=== PATIENT | male | born 1950 | race Caucasian/White ===

== ENCOUNTER 2024-12-22 14:10 | Outpatient (CLI) | payer MEDICARE | END 2024-12-22 14:11 | disposition home or self-care (01) | LOC: LABBT 14:10 | PROVIDERS: ATTEND Thoracic Surgery (Cardiothoracic Vascular Surgery) | DX: Z01.818 Encounter for other preprocedural examination (principal); I25.10 Atherosclerotic heart disease of native coronary artery without angina pectoris; I51.7 Cardiomegaly | CPT/HCPCS: 71046 ==

== ENCOUNTER 2024-12-22 14:30 | Inpatient (IN) | payer MEDICARE ==
[2024-12-22 15:06] LABS: #Basophils 0.04 10x3/uL (0.0-0.2); #Eosinophils 0.12 10x3/uL (0.0-0.7); #Monocytes 0.54 10x3/uL (0.11-0.59); #Neutrophils 4.33 10x3/uL (1.40-6.50); %Basophils 0.6 % (0.0-1.0); %Eosinophils 1.9 % (0.0-10.0); %Lymphocytes 22.1 % (21.0-51.0); %Monocytes 8.3 % (0.0-10.0); %Neutrophils 66.8 % (42.0-75.0); Hematocrit 42.7 % (42.0-52.0); Hemoglobin 13.9 g/dL (14.0-18.0); Mean Corpuscular Hemoglobin 30.6 pg (27.0-31.0); Mean Corpuscular Volume 94.1 fL (78.0-98.0); Platelet Count 142 10x3/uL (130-400); Red Blood Cell (RBC) Count 4.54 mill/uL (4.70-6.10); White Blood Cell (WBC) Count 6.48 10x3/uL (4.8-10.8)
[2024-12-22 15:37] LABS: Anion Gap 14 mmol/L (10-20); BUN (Urea Nitrogen) 16 mg/dL (8.4-25.7); Calc. Creatinine Clearance 0 mL/min (70-130); Calcium 9.5 mg/dL (7.8-10.44); Carbon Dioxide 26 mmol/L (23-31); Chloride 106 mmol/L (98-107); Glucose 87 mg/dL (83-110); Potassium 4.2 mmol/L (3.5-5.1); Sodium 142 mmol/L (136-145)
[2024-12-24] MEDS ORDERED: Heparin 10,000 UNITS/1 ML VIAL 30,000 UNITS in Sodium Chloride 0.9% 1,000 ML FS SCH (08:15)
[2024-12-24] MEDS ORDERED: PHENYLEPHRINE-NS 100 MCG/ML 10 ML SYRINGE ONE (08:35)
[2024-12-24] MEDS ORDERED: CEFAZOLIN 2 GM VIAL ONE (09:06)
[2024-12-24] MEDS ORDERED: Cardioplegic Soln 1,000 ML BAG ONE (09:39)
[2024-12-24] MEDS ORDERED: Heparin 30,000 units/30 ml VIAL ONE (09:39)
[2024-12-24] MEDS ORDERED: Lidocaine 1% PF 5 ML VIAL ONE (09:39)
[2024-12-24] MEDS ORDERED: Calcium Chloride 1 GM/10 ML Abboject SYRINGE ONE (09:39)
[2024-12-24] MEDS ORDERED: Thrombin 5000 UNITS/5 ML VIAL ONE (09:39)
[2024-12-24] MEDS ORDERED: PROPOFOL 200 MG/20 ML VIAL ONE (09:39)
[2024-12-24] MEDS ORDERED: Rocuronium Bromide 10 MG/ML (10ML VIAL) ONE (09:39)
[2024-12-24] MEDS ORDERED: Nitroglycerin 50 MG/250 ML BOT 250 ML IVPB PRN (12:40)
[2024-12-24] MEDS ORDERED: Potassium Chloride 20 MEQ (100 mL) BAG IVPB PRN (12:40)
[2024-12-24] MEDS ORDERED: Hetastarch 6% 500 ML 500 ML IVPB PRN (12:40)
[2024-12-24] MEDS ORDERED: Ondansetron PF 4 MG/2 ML Vial IVP PRN (12:40)
[2024-12-24] MEDS ORDERED: Bisacodyl 10 MG SUPP PR PRN (12:40)
[2024-12-24] MEDS ORDERED: Guaifenesin DM 100-10/5 ML UDCUP PO PRN (12:40)
[2024-12-24] MEDS ORDERED: Mag-Al 1200 mg/1200 mg/30 ML UDCUP PO PRN (12:40)
[2024-12-24] MEDS ORDERED: NOREPINEPHRINE 8 MG/250 ML-D5W 250 ML IVPB PRN (12:40)
[2024-12-24] MEDS ORDERED: Dextrose 50% Abboject 50 ML SYRINGE SLOW IVP PRN (13:00)
[2024-12-24] MEDS ORDERED: Glucagon 1 MG/ML KIT SC PRN (13:00)
[2024-12-24 13:05] LABS: Actual Bicarbonate (HCO3a) 21.4 mEq/L (22-28); Base Excess (BEa) -4.3 mEq/L (-2.0 to +3.0); CO2 Tension 42.0 mmHg (35.0-45.0); Calcium, Ionized (arterial) 1.15 mmol/L (1.12-1.30); Hematocrit-ABG 37 % (42.0-52.0); Hemoglobin (Hb) 12.7 g/dL (14.0-18.0); O2 Tension (PaO2), arterial 96.5 mmHg (> 70.0); Potassium - ABG Lab 4.64 mmol/L (3.70-5.30); pH, Arterial 7.326 (7.35-7.45)
[2024-12-24 13:07] LABS: ALV-art Gradient 278.800 mmHg (0-20); Puncture Site Arterial Line
[2024-12-24 13:25] LABS: #Basophils 0.05 10x3/uL (0.0-0.2); #Eosinophils 0.11 10x3/uL (0.0-0.7); #Monocytes 0.56 10x3/uL (0.11-0.59); #Neutrophils 9.22 10x3/uL (1.40-6.50); %Basophils 0.4 % (0.0-1.0); %Eosinophils 0.9 % (0.0-10.0); %Lymphocytes 15.6 % (21.0-51.0); %Monocytes 4.6 % (0.0-10.0); %Neutrophils 76.4 % (42.0-75.0); Hematocrit 36.5 % (42.0-52.0); Hemoglobin 11.6 g/dL (14.0-18.0); Mean Corpuscular Hemoglobin 30.4 pg (27.0-31.0); Mean Corpuscular Volume 95.8 fL (78.0-98.0); Platelet Count 116 10x3/uL (130-400); Red Blood Cell (RBC) Count 3.81 mill/uL (4.70-6.10); White Blood Cell (WBC) Count 12.08 10x3/uL (4.8-10.8)
[2024-12-24] MEDS: D5 1/2 NS w/20 mEq KCL 1,000 ML IV SCH (13:30)
[2024-12-24] MEDS: Albumin 5% 12.5 GM (250 mL) BOT IVPB PRN ×2 (13:31→23:48)
[2024-12-24] MEDS: Magnesium 2 GM/50 ML(in water) 2 GM in Premix 1 BAG IVPB SCH (13:31)
[2024-12-24 13:42] LABS: INR-International Normal Ratio 1.4; PTT 33.2 sec (22.9-36.1); Prothrombin Time 17.0 sec (12.0-14.7)
[2024-12-24 13:47] VITALS: BMI 33.0
[2024-12-24 13:54] LABS: Burr Cells SLIGHT = 2-5 cells HPF (0-1); Platelet Adequacy Comment Platelets Decreased; Polychromasia SLIGHT = 2-3 cells HPF (0-2)
[2024-12-24 13:56] LABS: Anion Gap 14 mmol/L (10-20); BUN (Urea Nitrogen) 15 mg/dL (8.4-25.7); Calc. Creatinine Clearance 89 mL/min (70-130); Calcium 7.9 mg/dL (7.8-10.44); Carbon Dioxide 21 mmol/L (23-31); Chloride 112 mmol/L (98-107); Glucose 132 mg/dL (83-110); Potassium 4.7 mmol/L (3.5-5.1); Sodium 142 mmol/L (136-145)
[2024-12-24] MEDS: hydrALAZINE 20 MG/ML VIAL SLOW IVP PRN (13:56)
[2024-12-24 14:59] LABS: Actual Bicarbonate (HCO3a) 22.4 mEq/L (22-28); Base Excess (BEa) -3.0 mEq/L (-2.0 to +3.0); CO2 Tension 41.2 mmHg (35.0-45.0); Calcium, Ionized (arterial) 1.15 mmol/L (1.12-1.30); Hematocrit-ABG 36 % (42.0-52.0); Hemoglobin (Hb) 12.4 g/dL (14.0-18.0); O2 Tension (PaO2), arterial 88.1 mmHg (> 70.0); Potassium - ABG Lab 4.25 mmol/L (3.70-5.30); pH, Arterial 7.353 (7.35-7.45)
[2024-12-24 15:00] LABS: ALV-art Gradient 145.600 mmHg (0-20); Puncture Site Arterial Line
[2024-12-24] MEDS: Gabapentin 300 MG CAP PO SCH (15:15)
[2024-12-24] MEDS: Ketorolac Tromethamine 30 MG (1 mL) VIAL IVP SCH (17:26)
[2024-12-24 18:44] LABS: Hematocrit 33.3 % (42.0-52.0); Hemoglobin 10.8 g/dL (14.0-18.0)
[2024-12-24] MEDS: Acetaminophen 325 MG TAB PO PRN (19:47)
[2024-12-24] MEDS: INSULIN REGULAR IN 0.9 % NACL 100 UNITS in Premix 1 BAG IVPB SCH (19:47)
[2024-12-24 19:56] LABS: Potassium 4.8 mmol/L (3.5-5.1)
[2024-12-24] MEDS: Mupirocin 1 GM TUBE NASAL DECOLOIZATION TP SCH (21:15)
[2024-12-24] MEDS: Famotidine/PF 20 mg/2ml Vial SLOW IVP SCH (21:15)
[2024-12-25 04:27] LABS: #Basophils Less than 0.03 10x3/uL (0.0-0.2); #Eosinophils Less than 0.03 10x3/uL (0.0-0.7); #Monocytes 0.64 10x3/uL (0.11-0.59); #Neutrophils 7.98 10x3/uL (1.40-6.50); %Basophils 0.2 % (0.0-1.0); %Eosinophils 0.0 % (0.0-10.0); %Lymphocytes 5.9 % (21.0-51.0); %Monocytes 6.9 % (0.0-10.0); %Neutrophils 86.6 % (42.0-75.0); Hematocrit 29.8 % (42.0-52.0); Hemoglobin 9.5 g/dL (14.0-18.0); Mean Corpuscular Hemoglobin 31.0 pg (27.0-31.0); Mean Corpuscular Volume 97.4 fL (78.0-98.0); Platelet Count 103 10x3/uL (130-400); Red Blood Cell (RBC) Count 3.06 mill/uL (4.70-6.10); White Blood Cell (WBC) Count 9.22 10x3/uL (4.8-10.8)
[2024-12-25 05:03] LABS: Anion Gap 13 mmol/L (10-20); BUN (Urea Nitrogen) 23 mg/dL (8.4-25.7); Calc. Creatinine Clearance 72 mL/min (70-130); Calcium 8.1 mg/dL (7.8-10.44); Carbon Dioxide 20 mmol/L (23-31); Cardiac Risk 3.6 (Less than 4.5); Chloride 110 mmol/L (98-107); Cholesterol 80 mg/dl (< 200 Desired); Glucose 109 mg/dL (83-110); HDL Cholesterol 22 mg/dL (>60 Neg Risk); LDL Cholesterol, Calculated 37 mg/dL; Potassium 4.2 mmol/L (3.5-5.1); Sodium 139 mmol/L (136-145); Triglycerides 106 mg/dL (Less than 150)
[2024-12-25] MEDS: Aspirin 325 MG TAB PO SCH (09:07)
[2024-12-25] MEDS: Magnesium 2 GM/50 ML(in water) 2 GM in Premix 1 BAG IVPB SCH (09:08)
[2024-12-25] MEDS ORDERED: Insulin Glargine 30 UNITS/0.3 ML VIAL SC PRN (12:46)
[2024-12-25] MEDS ORDERED: Milk Of Magnesia 30 ML UDCUP PO PRN (14:18)
[2024-12-25] MEDS ORDERED: Mineral Oil ENEMA PR PRN (14:18)
[2024-12-25] MEDS ORDERED: diphenhydrAMINE 25 MG CAP PO PRN (14:18)
[2024-12-25] MEDS ORDERED: Artificial Tear Ophth Sol 15 ML BOT EA EYE PRN (14:18)
[2024-12-25] MEDS ORDERED: Nitroglycerin 0.4 MG TAB (25 Tab Bottle) SL PRN (14:18)
[2024-12-25] MEDS: Pantoprazole 40 MG DR.TAB PO SCH (14:41)
[2024-12-25] MEDS ORDERED: UBIDECARENONE PO SCH (21:00)
[2024-12-25] MEDS ORDERED: VIT E ACET PO SCH (21:00)
[2024-12-25] MEDS ORDERED: [UNRECOGNIZED DRUG - OTHER] PO SCH (21:00)
[2024-12-26] MEDS: Pantoprazole 40 MG DR.TAB PO SCH (09:10)
[2024-12-26] MEDS: Furosemide 40 MG TAB PO SCH (09:10)
[2024-12-27] MEDS: PNEUMOC 20-VAL CONJ-DIP CRM/PF 0.5 ML SYRINGE IM ONE (10:23)
[2024-12-27 11:41] VITALS: BP 111/58; TEMP 98.8
== END 2024-12-27 14:34 | disposition home or self-care (01) | DRG 236 ==
LOC: SURG A 12-24 08:06 → CCU 12-24 11:55 → EDSTATUS 12-24 16:30 → 2NO 12-25 16:03
PROVIDERS: ADMIT Thoracic Surgery (Cardiothoracic Vascular Surgery); ATTEND Thoracic Surgery (Cardiothoracic Vascular Surgery)
PROC: 02100Z9 Bypass Coronary Artery, One Artery from Left Internal Mammary, Open Approach (ICD-10-PCS; principal; 2024-12-24)
PROC: 021009W Bypass Coronary Artery, One Artery from Aorta with Autologous Venous Tissue, Open Approach (ICD-10-PCS; 2024-12-24)
PROC: 06BQ4ZZ Excision of Left Saphenous Vein, Percutaneous Endoscopic Approach (ICD-10-PCS; 2024-12-24)
PROC: 02L70CK Occlusion of Left Atrial Appendage with Extraluminal Device, Open Approach (ICD-10-PCS; 2024-12-24)
PROC: 3E033XZ Introduction of Vasopressor into Peripheral Vein, Percutaneous Approach (ICD-10-PCS; 2024-12-24)
PROC: 30233J1 Transfusion of Nonautologous Serum Albumin into Peripheral Vein, Percutaneous Approach (ICD-10-PCS; 2024-12-24)
DX: I25.10 Atherosclerotic heart disease of native coronary artery without angina pectoris (principal); I10 Essential (primary) hypertension; D64.9 Anemia, unspecified; E78.5 Hyperlipidemia, unspecified; Z79.899 Other long term (current) drug therapy; Z79.82 Long term (current) use of aspirin
CPT/HCPCS: 36416; 71045; 76936; 80048; 80061; 82805; 83036; 85025; 85610; 85730; 86850; 86900; 86901; 93005; 93010; 93798; 94002; 94150; 97139; A4311; A4648; C1751; C1889; J0169; J0360; J0665; J1100; J1308; J1644; J1815; J1885; J2440; J2704; J2720; J3010; J3373; J3475; J3480; P9045; S0017